=== PATIENT | female | born 1980 | race Hispanic/Latino ===

== ENCOUNTER → 2019-08-26 | Outpatient (CLI) | payer OTHER ==
[~2019-08-26] MED LIST: D-20TAB PO; LISI10TA4 PO; VITA1CAP25 PO
[2019-08-26 11:38] LABS: BLOOD UREA NITROGEN 16 MG/DL (7-18); CALCIUM LEVEL 9.3 MG/DL (8.5-10.1); CARBON DIOXIDE LEVEL 25 MEQ/L (21-32); CHLORIDE LEVEL 107 MEQ/L (98-107); GLOMERULAR FILTRATION RATE > 60.0 (>58); GLUCOSE, FASTING 90 MG/DL (70-100); SODIUM LEVEL 140 MEQ/L (136-145)
--- NOTE | 2019-08-27 10:27 | ECGEPIP ---
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
== END ==
LOC: M LAB 09:39
PROVIDERS: ATTEND Anesthesiology
DX: Z01.818 Encounter for other preprocedural examination (principal); R03.0 Elevated blood-pressure reading, without diagnosis of hypertension; G43.909 Migraine, unspecified, not intractable, without status migrainosus

== ENCOUNTER 2019-08-29 08:31 | Day surgery (SDC) | payer OTHER ==
[~2019-08-29] VITALS: Ht 160 cm; Wt 75.7 kg
[~2019-08-29 08:31] MED LIST changes: +LR 1,000 ML IV ONE
[2019-08-29] MEDS ORDERED: BUPIVACAINE/EPIN 0.25% 30 ML VIAL As Ordered ONE (09:50)
[2019-08-29] MEDS ORDERED: PROPOFOL 200 MG/20 ML VIAL As Ordered ONE (10:29)
[2019-08-29] MEDS ORDERED: fentaNYL 250 MCG/5 ML INJECTION (J3010) As Ordered ONE (10:29)
[2019-08-29] MEDS ORDERED: LIDOCAINE 2% INJ 100 MG/5 ML SDV (FOR ANES.) As Ordered ONE (10:29)
[2019-08-29] MEDS ORDERED: KETOROLAC 60 MG/2 ML VIAL (J1885) As Ordered ONE (10:29)
[2019-08-29] MEDS ORDERED: SUGAMMADEX SODIUM 500 MG/5 ML VIAL (BRIDION) As Ordered ONE (10:29)
[2019-08-29] MEDS ORDERED: ONDANSETRON 4MG/2ML VIAL (J2405) As Ordered ONE (10:29)
[2019-08-29] MEDS ORDERED: dexameTHASONE 4 MG/ML 1ML VIAL (J1100) As Ordered ONE (10:29)
[2019-08-29] MEDS ORDERED: METOCLOPRAMIDE INJ 10MG/2ML VIAL (J2765) As Ordered ONE (10:29)
[2019-08-29] MEDS ORDERED: MIDAZOLAM INJ 2 MG/2 ML VIAL (J2250) As Ordered ONE (10:29)
[2019-08-29] MEDS ORDERED: ROCURONIUM BROMIDE 50 MG/5 ML VIAL As Ordered ONE (10:29)
[2019-08-29] MEDS ORDERED: ACETAMINOPHEN 1000MG 100ML IV BTL (OFIRMEV) (J0131 PER 10MG) As Ordered ONE (11:05)
[2019-08-29] MEDS ORDERED: LABETALOL HCL 100 MG/20 ML VIAL As Ordered ONE (11:28)
[2019-08-29] MEDS ORDERED: ONDANSETRON 4MG/2ML VIAL (J2405) IV PRN (12:00)
[2019-08-29] MEDS ORDERED: LR 1,000 ML IV SCH (12:00)
[2019-08-29] MEDS ORDERED: HYDROMORPHONE HCL 0.5 MG/ 0.5 ML SYRINGE (J1170 PER 1) IV PRN (12:00)
[2019-08-29] MEDS ORDERED: fentaNYL 100 MCG/2 ML INJECTION (J3010) As Ordered ONE (12:11)
[2019-08-29] MEDS: fentaNYL 100 MCG/2 ML INJECTION (J3010) IV PRN ×4 (12:13→12:30)
[2019-08-29] MEDS: PERCOCET 5MG/325MG TAB PO PRN ×2 (12:24→13:14)
[2019-08-29] MEDS ORDERED: NORCO, ANEXSIA 5/325MG TABLET (HYDROcodone/ACETAMINOPHEN) PO PRN (13:00)
[2019-08-29] MEDS ORDERED: PERCOCET 5MG/325MG TAB As Ordered ONE (13:14)
[2019-08-29] MEDS ORDERED: MORPHINE 10 MG/ML 1ML VIAL (J2270) IV PRN (14:45)
--- NOTE | 2019-08-29 14:58 | RO ---
DATE OF PROCEDURE: 08/29/2019 PREOPERATIVE DIAGNOSIS: Symptomatic cholelithiasis. POSTOPERATIVE DIAGNOSIS: Symptomatic cholelithiasis. PROCEDURE: Robotic cholecystectomy. SURGEON: Dr. Anderson MOSS PICKER: Constance Lilly NP ANESTHESIA: General. ESTIMATED BLOOD LOSS: 10 COMPLICATIONS: None. INDICATION FOR PROCEDURE: The patient 38-year-old female with right upper quadrant pain found to have symptomatic cholelithiasis. Recommendation was to proceed with robotic cholecystectomy. Risks and benefits of the procedure, not limited to but including bleeding, infection, hernia formation, damage to surrounding structure, need for further surgery were discussed in detail with the patient. Informed consent was obtained and procedure was planned. DESCRIPTION OF PROCEDURE: The patient brought back to operating room 7. After sufficient sedation, the abdomen was sterilely prepped and draped. Next, time-out was done to confirm proper patient and proper procedure. Following that, 8 mm incision was made in left upper quadrant. Veress needle was inserted and the abdomen was insufflated to 15 mmHg. Next, Veress needle was removed. 8 mm OptiView port was used to gain access to the abdomen. Once the abdomen was entered, three more ports were placed across the upper abdomen. The ports were then connected to the robot from the console. The fundus of the gallbladder was elevated up towards right shoulder. The neck of the gallbladder was dissected out. The cystic duct and cystic artery were both clearly identified and they were both doubly clipped and cut. Gallbladder was then removed from the gallbladder fossa with electrocautery and brought out in a 5 mm EndoCatch bag through the lateral port site. Once that was completed, 2-0 V-Loc suture was used to close the fascial opening that I very slightly opened to remove the gallbladder from the right upper quadrant port site. Once that was completed, the needle was removed. The abdomen was desufflated. Skin incisions were closed with 4-0 Vicryl subcuticular sutures. The abdomen was cleaned and dried. Steri-Strips, 4x4 and tape were applied, thus ending procedure.
[2019-08-29 15:00] VITALS: BP 132/72
== END 2019-08-29 15:23 | disposition home or self-care (01) ==
LOC: M SDC 08:31
PROVIDERS: ATTEND Surgery
DX: K81.1 Chronic cholecystitis (principal); I10 Essential (primary) hypertension; E55.9 Vitamin D deficiency, unspecified; G43.909 Migraine, unspecified, not intractable, without status migrainosus; Z98.51 Tubal ligation status; Z87.442 Personal history of urinary calculi; Z79.899 Other long term (current) drug therapy
CPT/HCPCS: 47562; 88304; J0131; J1100; J1170; J1885; J2250; J2270; J2405; J2765; J3010